=== PATIENT | male | born 1975 | race Caucasian/White ===

== ENCOUNTER 2021-06-04 10:12 | Emergency (ER) | payer SELFPAY ==
[~2021-06-04] VITALS: Ht 177.8 cm; Wt 100.0 kg
[2021-06-04 11:24] LABS: BASOPHILS % (AUTO) 0.3 % (0-1); EOSINOPHILS % (AUTO) 0 % (0-6); HEMATOCRIT 43.2 % (42.0-52.0); HEMOGLOBIN 14.7 g/dl (14.0-17.9); LYMPHOCYTES # (AUTO) 0.7 X10'3 (1.1-4.8); LYMPHOCYTES % (AUTO) 4.3 % (21-51); MEAN CORPUSCULAR HEMOGLOBIN 28.3 PG (27.0-31.0); MEAN CORPUSCULAR HGB CONC 34.2 g/dL (33.0-36.5); MEAN CORPUSCULAR VOLUME 82.9 FL (78-98); MEAN PLATELET VOLUME 7.3 FL (7.4-10.4); MONOCYTES # (AUTO) 0.5 X10'3 (0-0.9); MONOCYTES % (AUTO) 3.2 % (2-12); NEUTROPHILS # (AUTO) 14.7 X10'3 (1.8-7.7); NEUTROPHILS % (AUTO) 92.2 % (42-75); PLATELET COUNT 293 X10'3 (140-440); RED CELL DISTRIBUTION WIDTH 12.9 % (11.5-14.5)
[2021-06-04 11:39] LABS: ALANINE AMINOTRANSFERASE 19 U/L (12-78); ALBUMIN 3.4 G/DL (3.4-5.0); ALBUMIN/GLOBULIN RATIO 0.9 (1.1-1.5); ALKALINE PHOSPHATASE 53 IU/L (46-116); ANION GAP 10 (8-16); ASPARTATE AMINO TRANSFERASE 14 U/L (10-37); BILIRUBIN,TOTAL 0.7 MG/DL (0.1-1.0); BLOOD UREA NITROGEN 12 MG/DL (7-18); BUN/CREATININE RATIO 10.4 (5.4-32.0); CALCIUM 8.5 MG/DL (8.5-10.1); CHLORIDE 100 MMOL/L (99-107); CREATININE 1.15 MG/DL (0.60-1.10); GLUCOSE 128 MG/DL (70-104); POTASSIUM 3.9 MMOL/L (3.5-5.1); SODIUM 135 MMOL/L (135-145); TOTAL CARBON DIOXIDE 25.2 MMOL/L (24-32); TOTAL PROTEIN 7.4 G/DL (6.4-8.2); eGFR 68 ML/MIN
[2021-06-04] MEDS ORDERED: acetaminophen 325mg tablet PO ONE (12:10)
[2021-06-04] MEDS ORDERED: LIDOcaine 1% W/epiNEPHrine 1:200,000 10ml vial IJ ONE (13:45)
[2021-06-04] MEDS ORDERED: LIDOCAINE 2% w/EPI 1:100:000 30mL injection MDV**cath lab 1 only SQ ONE (13:55)
--- NOTE | 2021-06-04 14:30 | NUR ---
in with pt to obtain sample from Ethel garcia
[2021-06-04 15:31] LABS: GLUCOSE,SYNOVIAL FLUID 125 MG/DL; TOTAL PROTEIN,SYNOVIAL FLUID 2.4 GM/DL
[2021-06-04 15:44] LABS: APPEARANCE,SYNOVIAL FLUID HAZY; COLOR,SYNOVIAL FLUID YELLOW; CRYSTAL ID, SYN FLD CA PYROPHOSPHATE; SYN RBC 13 /CU MM (0); SYN WBC 660 /CU MM (0-200); SYNOVIAL FLUID CRYSTALS QT FEW
[2021-06-04] MEDS ORDERED: methylPREDNISolone sod succ 125mg/2ml vial IM ONE (16:10)
[2021-06-04] MEDS ORDERED: COLC0.6T72 PO (16:12)
[2021-06-04] MEDS ORDERED: HYDR-3973 PO (16:15)
[2021-06-04 16:31] VITALS: BP 106/66
== END 2021-06-04 16:49 | disposition home or self-care (01) ==
LOC: ER 10:12
DX: M10.9 Gout, unspecified (principal); M25.561 Pain in right knee
CPT/HCPCS: 36415; 73560; 80053; 82945; 83605; 84145; 84157; 85025; 85651; 86140; 87040; 87070; 89051; 89060; 96372; 99285; J2930